=== PATIENT | male | born 1970 | race Caucasian/White ===

== ENCOUNTER 2016-11-13 07:52 | Emergency (ER) | payer OTHER ==
[2016-11-13 08:00] VITALS: BP 135/79; PULSE 81; RESP 18; TEMP 97.9; O2SAT 98
--- NOTE | 2016-11-13 08:27 | EDPHY ---
H & P Stated Complaint: right foot pain HPI/ROS: CHIEF COMPLAINT: Foot pain HISTORY OF PRESENT ILLNESS: Patient was hiking last night and a pair of Anant sandles. He said he stepped awkwardly on his right foot. He felt a sudden onset of pain in the right midfoot. This is over the 4th and 5th metatarsals. Minimal pain last night. It was minimal enough that he actually hike from the 1 to 2 hours. Over the course of the evening became moderately painful. He woke at 2:30 a.m. with severe pain. No pain in the heel or proximal fibula. No direct trauma to the area. No numbness or tingling. The pain is been constant since last night. Worse with weight-bearing. Improved with rest and elevation. No other associated complaints or modifying factors. SOCIAL: Patient is visiting from [place]. He does have type 1 diabetes is controlled well with insulin pump. Nonsmoker. PRIOR ORTHO INJURIES: Left elbow injury ESTABLISHED ORTHOPEDIST: In [place]. Patient is visiting REVIEW OF SYSTEMS: Ten systems reviewed and are negative unless otherwise noted in the HPI EXAMINATION General Appearance: Alert, no distress Cardiovascular: Pulses normal throughout. Symmetric DP and PT pulses are 2+ each. Brisk cap refill Neurological: A&O, sensory symmetric, strength symmetric. Normal proprioception of the great toe. No footdrop Skin: Warm and dry, no rash. No ecchymosis, lacerations, abrasions or contusions Extremities: Tenderness to palpation of the right midfoot over the 4th and 5th metatarsals. No crepitus. No instability. No tenderness of the calcaneus or malleoli. Range of motion is intact and symmetric. There is no tenderness of the right proximal fibula. Neurovascular intact distally Psychiatric: Mood and affect normal DIFFERENTIAL DIAGNOSES: Including but not limited to sprain, strain, fracture, dislocation, fracture dislocation MDM: 8:20 a.m. Right midfoot sprain strain from an injury that occurred last night while hiking. He is neurovascular intact. X-ray of the foot has been ordered no acute distress. He is declining pain medication at this time. 8:40 a.m. X-ray as interpreted by me reveals no fracture of the metatarsals. There is a questionable area of the middle cuneiform. I will discuss with radiology. 9:00 a.m. I discussed the x-ray with Dr. Ambrocio. He does not appreciate any acute osseous changes. There are appearance is consistent with the patient's diabetes. I discussed this with the patient. He will be discharged home with crutches and a postoperative shoe. He is weight-bearing as tolerated and nonweightbearing while painful. Follow up with his established orthopedist back into your. He is returning home in several days. Pain medication provided. Anti- inflammatories recommended. Return to the ER precautions discussed. He is discharged home in stable condition, neurovascular intact ED Precautions: Worsening pain. Erythema, edema, cyanosis, pallor, paresthesia or anesthesia. SUPERVISION: This patient was independently evaluated without direct examination by the attending physician. Case was discussed with attending physician. Source: Patient, Family Exam Limitations: No limitations - Medical/Surgical History Other PMH: DMI, ADD - Social History Smoking Status: Former smoker Constitutional: Initial Vital Signs Temperature (C) 97.9 F 11/13/16 07:56 Heart Rate 81 11/13/16 07:56 Respiratory Rate 18 11/13/16 07:56 Blood Pressure 135/79 H 11/13/16 07:56 O2 Sat (%) 98 11/13/16 07:56 O2 Delivery Mode Room Air Allergies/Adverse Reactions: No Known Allergies Allergy (Unverified 11/13/16 07:55) Home Medications: Medication Instructions Recorded Humalog 11/13/16 Hydrocodone/Acetaminophen [[place] 1 each PO Q4-6PRN PRN #14 tablet 11/13/16 7.5-325 Tablet] Vyvanse 11/13/16 Medical Decision Making - Diagnostics Imaging Results: Imaging Impressions Foot X-Ray 11/13/16 08:15 Impression: 1. No acute osseous at about is seen right foot. 2. Vascular calcification is noted in the soft tissues. This can be seen with underlying diabetes. - Data Points Medications Given: Discontinued Medications Hydrocodone Bitart/Acetaminophen ([place] 5/325) 1 tab PO EDNOW ONE Stop: 11/13/16 09:28 Last Admin: 11/13/16 09:31 Dose: 1 tab Departure - Departure Disposition: Home, Routine, Self-Care Clinical Impression: Sprain of foot, right Qualifiers: Encounter type: initial encounter Qualified Code(s): S93.601A - Unspecified sprain of right foot, initial encounter Condition: Good Instructions: Foot Sprain (ED) Additional Instructions: 1. Pain medication as discussed as needed 2. Ibuprofen 600 mg every 8 hours as needed for pain and swelling 3. Crutches as needed, weight-bearing as tolerated 4. Follow up with established orthopedist in [place] when he returns home later this week Referrals: NONE *PRIMARY CARE P,. [Primary Care Provider] - As per Instructions Edu Pascal MD [Medical Doctor] - As per Instructions Prescriptions: Hydrocodone/Acetaminophen [[place] 7.5-325 Tablet] 1 each PO Q4-6PRN PRN #14 tablet PRN Reason: Pain, Moderate
[2016-11-13] MEDS ORDERED: HYDROCODONE/APAP 5/325 TAB PO ONE (09:27)
== END 2016-11-13 09:52 | disposition home or self-care (01) ==
DX: S93.601A Unspecified sprain of right foot, initial encounter (principal); E11.9 Type 2 diabetes mellitus without complications; Z79.4 Long term (current) use of insulin; Z87.891 Personal history of nicotine dependence; X58.XXXA Exposure to other specified factors, initial encounter; Y99.8 Other external cause status; Y93.01 Activity, walking, marching and hiking
CPT/HCPCS: L3260